=== PATIENT | female | born 1985 | race Caucasian/White ===

== ENCOUNTER 2019-08-17 17:33 | Emergency (ER) | payer SELFPAY ==
[2019-08-17 17:35] VITALS: BP 169/116; PULSE 99; RESP 18; TEMP 37.2; O2SAT 99; BMI 45.0
[2019-08-17 18:33] VITALS: RESP 16
--- NOTE | 2019-08-17 18:37 | ED.DCSUM_ITS ---
- ER Visit Summary Date of Service: 08/17/19 Chief Complaint: Back pain History of Present Illness: The patient is a 34 F with no primary care physician. She reports that she moved here from [place] last week. She reports her sat low back pain for the past month. Is a sharp, burning pain that is 10 on 10 with movement or walking. Is 5-10 at rest after ibuprofen. Denies any radiation to her legs. No problems with her bowels or bladder. No groin numbness. Patient denies any trauma. No fall, MVA, or change in activity. She denies any IV drug abuse. She has no red flags. Physical Examination: Vitals: Stable. Afebrile. General: A&O x 3. NAD. Cardiovascular exam: Regular rate and rhythm, no murmur, rub or gallop. Respiratory exam: Clear to auscultation bilaterally. No wheezes or stridor. Abdominal exam: Soft, nontender, nondistended, normal bowel sounds. No perit burch signs. Back: Diffuse moderate tenderness to palpation over the lumbar spine and the paraspinous musculature in the lumbar region. No point tenderness. Negative straight leg bilaterally. 5/5 DF, PF, EHL bilaterally. Normal sensation to light touch throughout. Extremity: No clubbing, cyanosis, or edema. Emergency Department Course and Treatment: OARS report is negative. Unfortunately this does not cover [place]. She was given Tylenol here. Treatment Plan: Patient has 1 kidney. I do not think that putting her on NSAIDs is in her best interest. She will be discharged prescription for 10 Percocet and instructed to follow-up Dr. Foster in 1 week if not improving. I did discuss with her symptomatic management with a TENS unit and warm compresses. I suggested that physical therapy is a thing that is going to help the most. The signs and symptoms of cauda equina syndrome were discussed and she is instructed to return for these. Disposition: To home in improved and stable condition. Impression: 1. Low back pain. This note was generated with [employer] dictation software. It may contain incorrect words, spelling, and punctuation that were not noted in review of the chart prior to signing ED Disposition - Plan for ED Patient: Disposition: Home or Assisted Living Instructions: BACK PAIN (Acute or Chronic) Prescriptions: Oxycodone HCl/Acetaminophen [Percocet 5/325] 1 tab PO Q6H PRN PRN 3 Days #12 tab PRN Reason: Pain Prescription Printed Referrals: Jamison Foster DO [NON CLINICAL AFFILIATE] - 1 Week if not improving
[2019-08-17] MEDS: Acetaminophen 325 MG Tablet 1000 MG PO (18:44)
[2019-08-17 18:47] VITALS: RESP 16
--- NOTE | 2019-08-17 18:47 | ED.RN ---
REVIEWED D/C INSTRUCTIONS, FOLLOW UP CARE, PRESCRIPTION, AND S/S THAT WOULD WARRANT A RETURN TO THE ED WITH PT. PT VERBALIZED AN UNDERSTANDING AND DENIES FURTHER QUESTIONS FOR THIS RN. PT SKIN WARM/DRY, RESP EVEN AND UNLABORED, PT A&O X 3, NO DISTRESS NOTED. PT AMBULATED OUT OF ED, GAIT STEADY.
== END 2019-08-17 18:50 | disposition home or self-care (01) ==
LOC: ED 18:50
PROVIDERS: Emergency Provider Emergency Medicine
DX: M54.5 Low back pain (principal); I10 Essential (primary) hypertension; F41.9 Anxiety disorder, unspecified; F32.9 Major depressive disorder, single episode, unspecified; F90.9 Attention-deficit hyperactivity disorder, unspecified type; Z79.899 Other long term (current) drug therapy; Z72.0 Tobacco use
CPT/HCPCS: 99283

== ENCOUNTER 2019-08-21 16:59 | Emergency (ER) | payer SELFPAY ==
[2019-08-21 17:01] VITALS: BP 166/104; PULSE 110; RESP 20; TEMP 36.5; O2SAT 98; BMI 46.5
[2019-08-21 17:59] VITALS: BP 142/85; PULSE 100; RESP 18; O2SAT 99
--- NOTE | 2019-08-21 18:00 | ED.VIS.GEN ---
History of Present Illness Chief Complaint: Back Informant: Patient Onset: - Maximum Severity: Mild - Ears Narrative: Patient mention she is had chronic lumbar back pain for years she used to live in [place] current lives in the [facility], she had exacerbation of the pain of the last few weeks no direct trauma no numbness weakness paresthesias his pain really more to the right side of her back than the left she was seen recently in the emergency department. She was started on Percocet to use as needed and follow-up with outpatient providers if not improved, she thought she was supposed to wait 1 week before she called for the appointment She indicates she has 1 kidney from her kidney function is normal, her chief issue is Percocet makes her drowsy at work and she cannot use it at work and she wants something else Tylenol is ineffective She is able to take nonsteroidals intermittently Past Medical History - Allergies and Home Meds Allergies/Adverse Reactions: Allergies adhesive Adverse Reaction (Verified 08/17/19 17:34) Rash latex Adverse Reaction (Verified 08/17/19 17:34) Rash Primary Care Physician: Care Physician,No Primary [Primary Care Provider] - Past Medical History: - Smoking Status: Current some day smoker Review of Systems ROS: - Lumbar back pain General: Denies: Chills, Fever, Sweats Eyes: Denies: Visual changes - bilaterally, Diplopia ENT: Denies: Rhinorrhea, Sore throat Cardiovascular: Denies: Chest pain, Palpitations Respiratory: Denies: Dyspnea, Cough, Dyspnea on exertion Gastrointestinal: Denies: Abdominal pain, Nausea, Vomiting, Diarrhea, Melena, Hematochezia Genitourinary: Denies: Dysuria, Hematuria, Frequency Musculoskeletal: Reports: Back pain. Denies: Extremity Pain Skin: Denies: Rash, Wounds Neurological: Denies: Headache, Weakness, Numbness Physical Exam Vital Signs/Narrative: Vital Signs Temp Pulse Resp BP Pulse Ox 08/21/19 17:01 97.7 F L 110 H 20 H 166/104 H 98 General: Well nourished, Well developed, No Acute Distress Head: Normocephalic, Atraumatic Eyes: Perrl, EOMI ENT: Moist mucous membranes, No rhinorrhea Neck: Supple, Nontender Cardiovascular: Regular rate, Regular rhythm, No murmurs Respiratory: No distress, CTA bilaterally, Chest nontender Abdomen: Soft, Nontender, Nondistended, Normal bowel sounds Back: Nontender, Normal Inspection, - - Is a nonspecific pain to the right more than the left paralumbar back the midline back is unremarkable she is a very large woman she is able to stand and walk without difficulty she can toe raise heel raise knee bend and walk without difficulty no signs of cauda equina her neurologic exam is unremarkable there is no radiation Extremities: Nontender, No edema Skin: Normal color, No rash Neurological: Alert, Oriented x3, Cranial nerves II-XII grossly intact, Normal Strength, Normal Sensation Psychological: Normal affect, Normal Mood Diagnostic/Tx/Re-eval - Medical Decision Making Discussed all the above with her in detail the issue is that she feels as if she cannot use the Percocet at work as it makes her drowsy she has a single isolated solitary kidney at she is able to use nonsteroidals, at this time she will be given a shot of Toradol x1 she will use Naprosyn 500 mg during the day try to use the Percocet very sparingly and she will call the outpatient provider she was referred to an see them for further ongoing management of his condition Home stable Impression final acute recurrent lumbar back pain, 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
[2019-08-21] MEDS: Ketorolac 60 MG/2 ML Vial IM (18:11)
== END 2019-08-21 18:40 | disposition home or self-care (01) ==
LOC: ED 18:05
PROVIDERS: Emergency Provider Emergency Medicine
DX: M54.5 Low back pain (principal); G89.29 Other chronic pain; Q60.0 Renal agenesis, unilateral; Z79.899 Other long term (current) drug therapy; F17.200 Nicotine dependence, unspecified, uncomplicated
CPT/HCPCS: 96372; 99283

== ENCOUNTER 2022-06-12 01:08 | Emergency (ER) | payer OTHER, SELFPAY ==
[2022-06-12 01:14] VITALS: BP 131/84; PULSE 66; RESP 16; TEMP 36.6; O2SAT 100; BMI 35.1
--- NOTE | 2022-06-12 01:18 | RAD_ITS ---
STUDY: X-RAY - LEFT FOOT CLINICAL: Female, 37 years old. pain TECHNIQUE: 3 view(s) of the foot. COMPARISON: None. FINDINGS: There is a plantar calcaneal spur. Normal visualized subtalar, talonavicular, calcaneocuboid, tarsal and tarsometatarsal articulations. Normal metatarsi. Normal metatarsophalangeal joint of the great toe. Normal tibial and fibular sesamoid bones. Normal interphalangeal joint of the great toe. Normal phalanges of the great toe. Normal second through fifth metatarsophalangeal joints. Normal interphalangeal joints and phalanges of the lesser toes. The soft tissue structures are unremarkable. RAD/Foot min 3 Views IMPRESSION: Normal x-ray examination of the foot. Electronically Signed: Cristy Adame MD at 2:06 EST ,
--- NOTE | 2022-06-12 01:47 | EDS_ITS ---
HPI History of Present Illness HPI Narrative: Patient presents with left foot pain that began today. Patient states she got out of bed and stepped on her left foot. Patient states she felt a pop at that time. Patient states the pain is worse with any movement. Patient states it is better with rest. Patient describes her pain as sharp. Patient denies any paresthesias or weakness. Patient denies any other injuries. Patient states her pain is mainly over the dorsum of her left midfoot. Chief Complaint: Lower Extremity Injury Informant: patient Occured/Mechanism Comment: Patient felt a pop while standing on her foot Onset/Context/Timing Onset: Today Context: Sudden Onset Timing: Continuous Quality of Pain: Sharp Location: Left foot Worsened by: Movement Relieved by: Rest Associated Symptoms Associated Symptoms: Negative for Parasthesia, Weakness or Loss of Funtion [facility] Medical History Anxiety Depression Kidney anomaly, congenital Tachycardia Home Medications metoprolol tartrate 25 mg tablet 25 mg PO BID 06/12/22 [History Last Taken Unknown] venlafaxine 37.5 mg tablet 37.5 mg PO TID 06/12/22 [History Last Taken Unknown] Allergy/AdvReac Type Severity Reaction Status Date / Time bupropion [From Wellbutrin] Allergy Other Verified 06/12/22 01:12 adhesive AdvReac Rash Verified 06/12/22 01:12 latex AdvReac Rash Verified 06/12/22 01:12 Surgical History Gastric bypass status for obesity History of tonsillectomy and adenoidectomy Social History Smoking Status: Never smoker ROS ROS ED Constitutional Constitutional ED: Denies chills or fever(s) Eyes Eyes: Denies blurry vision or change in vision ENT ENT ED: Denies rhinorrhea or sore throat Cardiovascular Cardiovascular: Denies chest pain or palpitations Respiratory/Chest Respiratory/Chest: Denies cough or dyspnea Gastrointestinal Gastrointestinal: Denies nausea or vomiting Genitourinary Genitourinary ED: Denies dysuria or hematuria Musculoskeletal Musculoskeletal: Denies back pain or neck pain Integumentary Denies abscess or rash Neurologic Neurologic: Denies headache(s) or weakness Allergic/Immunologic Allergic/Immunologic ED: Denies mouth swelling or urticaria EXAM Physical Exam Const Vital Signs: 06/12/22 01:14 Temperature 97.9 F Temperature Source Temporal Pulse Rate 66 Respiratory Rate 16 Blood Pressure 131/84 H Blood Pressure Mean 99 Pulse Ox 100 Oxygen Delivery Method Room Air Positive well nourished, well developed and obese General Appearance ED: well developed and NAD Nutritional Appearance: obese HEENT Reports moist mucous membranes Neck full ROM and supple Extremity Extremity Narrative: There is tenderness over the dorsum of the left midfoot. There is some mild edema. There is no ecchymosis. There is no deformity noted. Range of motion was limited in all motions of the left foot and ankle secondary to pain. Sensation was intact to light touch in all digits. Capillary refill was less than 2 seconds in all digits. Pedal pulses are equal bilaterally. There is no calf tenderness. There is no tenderness over the proximal fibula. There is no tenderness of the medial or lateral malleoli. Neuro oriented x3, CN's II-XII intact bilaterally, moves all extremities and no sensory deficits noted Sensorium / Orientation: alert Motor Exam: strength 5/5 throughout Psych mental status grossly normal MDM MDM MDM Narrative Medical decision making narrative: X-rays of the left foot were obtained. There are 3 views. On my in terpretation, there is no acute fracture. There is no dislocation. There is no soft tissue swelling. Radiologist also interpreted the x-rays and agrees. Patient was given a postoperative shoe. Patient was instructed to ice and elevate the left foot. Patient was instructed to take Tylenol or ibuprofen as needed for pain. Patient was instructed return if worse in any way. Patient was instructed to follow-up with her primary care physician in 5 to 7 days. Patient understood and was agreeable with the plan. All questions were answered. Radiography Diagnostic Testing: Clinical Impression(s) from Imaging Studies Foot X-Ray 06/12/22 01:18 IMPRESSION: Normal x-ray examination of the foot. Electronically Signed: Cristy Adame MD at 2:06 EST , Discharge Plan Triage Chief Complaint: Lower Extremity Injury ED Provider: Schwiger,Mani Dx/Rx/DC Orders Clinical Impression: Sprain of left foot, Obesity (BMI 30-39.9) Instructions: ED Foot Sprain Prescriptions: No Action venlafaxine 37.5 mg tablet 37.5 mg PO TID Label Comments: TAKE 1 TABLET BY MOUTH THREE TIMES DAILY metoprolol tartrate 25 mg tablet 25 mg PO BID Label Comments: TAKE 1 TABLET BY MOUTH TWICE DAILY Primary Care Provider: Fabián Mora Referrals: Fabián Mora MD [Primary Care Provider] - 5-7 Days Disposition Disposition: Home, Self Care
[2022-06-12 02:35] VITALS: BP 128/72; PULSE 79; RESP 18; O2SAT 100
== END 2022-06-12 02:36 | disposition home or self-care (01) ==
PROVIDERS: Emergency Provider Emergency Medicine; PCP Family Medicine; Visit Provider Emergency Medicine
DX: S93.602A Unspecified sprain of left foot, initial encounter (principal); E66.9 Obesity, unspecified; Z79.899 Other long term (current) drug therapy; X58.XXXA Exposure to other specified factors, initial encounter
CPT/HCPCS: 73630; 99283

== ENCOUNTER 2024-02-12 20:35 | Inpatient (IN) | payer OTHER, SELFPAY ==
[2024-02-12 20:36] VITALS: BP 157/87; PULSE 113; RESP 18; TEMP 36.6; O2SAT 100; BMI 34.8
[2024-02-12 20:38] VITALS: BP 126/70; PULSE 113; RESP 18; TEMP 38.9; O2SAT 100
--- NOTE | 2024-02-12 20:59 | CT_ITS ---
INDICATION: flank pain EXAMINATION: CT ABDOMEN AND PELVIS WITHOUT CONTRAST - CT Abdomen And Pelvis W/O Contrast Injection TECHNIQUE: Helically acquired images were obtained of the abdomen and pelvis without oral or IV contrast. A radiation dose optimization technique was used for this scan. IV Contrast dosage and agent: None. Oral contrast: None. COMPARISON: None. FINDINGS: LOWER CHEST: Lung bases are clear. No cardiomegaly or pericardial effusion. LIVER: Homogeneous hepatomegaly. No focal mass. GALLBLADDER AND BILIARY TREE: Gallbladder is mildly distended with trace adjacent fluid or mild wall thickening. No intra- or extrahepatic biliary ductal dilation. PANCREAS: No focal cystic or solid mass. SPLEEN: Normal size without focal cystic or solid mass. ADRENAL GLANDS: No nodules. KIDNEYS AND URETERS: Absent right kidney. Compensatory left renal enlargement. Mild diffuse left perinephric stranding. No hydronephrosis or nephrolithiasis. Unremarkable ureters and bladder. PERITONEUM: No ascites or free air. No other fluid collection. BOWEL: Antecolic Haim-en-Y gastric bypass without obstruction or focal inflammation. No small bowel distention or focal wall thickening. Cecum and normal appendix are noted at midline. No acute colonic finding. LYMPH NODES: No enlarged mesenteric or retroperitoneal lymph nodes. VESSELS: Aorta is non-dilated. URINARY BLADDER: Mostly decompressed, unremarkable.. REPRODUCTIVE ORGANS: Lobulated fibroid uterus. No evidence of adnexal mass.. ABDOMINAL WALL: No discrete abdominal or pelvic wall hernia. BONES: No lytic or blastic abnormality. CT/Abdomen/Pelvis without Cont IMPRESSION: Solitary left kidney with mild perinephric inflammatory stranding.. Correlate for clinical evidence of pyelonephritis. Mildly distended gallbladder with minimal pericholecystic fluid or wall thickening. Consider gallbladder ultrasound. Hepatomegaly. Electronically Signed: Obie Em MD at 22:22 EDT ,
--- NOTE | 2024-02-12 21:01 | EDS_ITS ---
HPI <TALHA Nascimento - Last Filed: 02/12/24 22:58> History of Present Illness Chief Complaint: Complaint Narrative Narrative: Patient is a 38-year-old female with history of being born with 1 kidney, tachycardia, anxiety, depression, ADHD who presents to the emergency department for fever, left-sided flank pain. Patient states 1 week ago, the patient started with some lower back pain, however did not think much of it. Over the weekend, the patient states she just slept a lot. She went to the urgent care Friday which was 3 days ago, diagnosed with a UTI, given Bactrim. Patient states she is now having significant pain to her left flank that radiates to the left abdomen. She states the fever, chills, and feels nauseated. She states she also has blood when she wipes. PFS <TALHA Nascimento - Last Filed: 02/12/24 22:58> [facility] Medical History (Updated 02/12/24 @ 23:[address] Shaheed Tinoco MD) Insomnia MDD (major depressive disorder), single episode ADHD Generalized anxiety disorder with panic attacks Anxiety Depression Kidney anomaly, congenital Tachycardia Home Medications ?Medication ?Instructions ?Recorded ?Last Taken ?Type metoprolol tartrate 25 mg tablet 25 mg PO BID 06/12/22 Unknown History aripiprazole 2 mg tablet 2 mg PO DAILY #30 tabs 01/05/24 Unknown Rx dextroamphetamine-amphetamine 10 10 mg PO BID 30 days #60 tabs 01/14/24 Unknown Rx mg tablet (Adderall) venlafaxine 50 mg tablet 50 mg PO TID #90 tabs 02/10/24 Unknown Rx clonazepam 1 mg tablet (Klonopin) 1 mg PO DAILY PRN anxiety 02/12/24 Unknown History doxepin 10 mg capsule 10 mg PO QHS PRN insomnia 02/12/24 Unknown History etonogestrel 68 mg subdermal 1 implant subdermal .COMPLEX 02/12/24 Unknown History implant (Nexplanon) Allergy/AdvReac Type Severity Reaction Status Date / Time bupropion (From Wellbutrin) Allergy Other Verified 02/12/24 21:37 atomoxetine (From Strattera) AdvReac Mild Itching Verified 02/12/24 21:37 adhesive AdvReac Rash Verified 02/12/24 21:37 latex AdvReac Rash Verified 02/12/24 21:37 Family History Other Anxiety Asthma Cancer Depression Hypertension Psychiatric care Suicide attempt Surgical History History of tonsillectomy and adenoidectomy Gastric bypass status for obesity Social History Smoking Status: Never smoker ROS <TALHA Nascimento - Last Filed: 02/12/24 22:58> ROS ED ROS Narrative Constitutional: Negative for weight loss, weakness. Positive for fever and chills Eyes: Negative for vision loss, vision change, double vision ENT: Negative for any sore throat, ear pain, congestion Cardiovascular: Negative for any chest pain, tightness, palpitations Respiratory: Negative for any cough, sputum production, hemoptysis, dyspnea, dyspnea on exertion, orthopnea Gastrointestinal: Negative for any vomiting, diarrhea, constipation, blood in stool, blood in vomit. Positive for left flank pain, rating to the left abdomen : Negative for any retention. Positive for urinary frequency, pain with urination, blood in urine Muscle skeletal: Negative for any neck pain. Positive for left-sided flank pain Neurological: Negative for any headache, syncope, dizziness Skin: Negative for any rashes, itching, abrasions, lacerations Psychiatric: Negative for any depression, anxiety, stress, suicidal ideation, homicidal ideation Hematologic: Negative for any excessive bruising, easy bleeding EXAM <TALHA Nascimento - Last Filed: 02/12/24 22:58> Physical Exam Narrative Exam Narrative: Vital signs reviewed. Patient is febrile, tachycardic, looks uncomfortable. HEET: Head normocephalic atraumatic, TMs clear bilaterally. Posterior pharynx is clear, dry mucous membranes. Nares clear bilaterally. Neck: Supple with no lymphadenopathy or tenderness. No signs of meningismus. Cardiac: Tachycardic, no murmurs gallops or rubs, equal peripheral pulses bilaterally. Respiratory: Lungs clear to auscultation bilaterally. No chest tenderness. Abdomen: Soft, nontender, nondistended. No abdominal bruit or pulsatile masses. No hepatosplenomegaly Extremities: No peripheral edema, no signs of gross trauma or deformity. Active full range of motion of all extremities. Neuro: Cranial nerves II through XII intact, no focal neurological deficits. Skin: Clean dry and intact with no rash, purpura, petechiae, vesicles or pustules. Backs/flank: Positive for left-sided CVA tenderness, no midline spinal tenderness, no deformity. Psych: Normal mood and affect. No SI, HI or acute psychosis. Const Vital Signs: 02/12/24 20:36 02/12/24 20:38 02/12/24 21:08 Temperature 98 F 102.1 F H Temperature Source Temporal Oral Pulse Rate 113 H 113 H Respiratory Rate 18 18 Blood Pressure 157/87 H 126/70 H Blood Pressure Mean 110 88 Pulse Ox 100 100 99 Oxygen Delivery Method Room Air Room Air Room Air 02/12/24 22:35 02/12/24 23:19 Temperature 98.4 F Temperature Source Pulse Rate 93 96 Respiratory Rate 16 16 Blood Pressure 109/60 108/69 Blood Pressure Mean 76 82 Pulse Ox 98 98 Oxygen Delivery Method Room Air Positive well nourished and well developed General Appearance ED: well developed <Dr. Shaheed Tinoco MD - Last Filed: 02/12/24 23:49> Physical Exam Const Vital Signs: 02/12/24 20:36 02/12/24 20:38 02/12/24 21:08 Temperature 98 F 102.1 F H Temperature Source Temporal Oral Pulse Rate 113 H 113 H Respiratory Rate 18 18 Blood Pressure 157/87 H 126/70 H Blood Pressure Mean 110 88 Pulse Ox 100 100 99 Oxygen Delivery Method Room Air Room Air Room Air 02/12/24 22:35 02/12/24 23:19 Temperature 98.4 F Temperature Source Pulse Rate 93 96 Respiratory Rate 16 16 Blood Pressure 109/60 108/69 Blood Pressure Mean 76 82 Pulse Ox 98 98 Oxygen Delivery Method Room Air MDM <TALHA Nascimento - Last Filed: 02/12/24 22:58> MDM Lab Data Labs: Laboratory Results - last 24 hr 02/12/24 21:20 WBC 13.2 H RBC 3.88 L Hgb 12.5 Hct 36.6 L MCV 94.3 MCH 32.2 H MCHC 34.2 RDW Std Deviation 41.0 RDW Coeff of Krys 11.9 Plt Count 285 MPV 9.2 Immature Gran % (Auto) 2.800 H Neut % (Auto) 85.2 H Lymph % (Auto) 4.5 L Holt % (Auto) 6.3 Eos % (Auto) 0.5 Baso % (Auto) 0.7 Absolute Neuts (auto) 11.2 H Absolute Lymphs (auto) 0.59 L Nucleated RBC % 0 Differential Comment SEE COMMENT Platelet Estimate ADEQUATE RBC Morphology N CHROM Anisocytosis RARE Macrocytosis RARE PT 15.2 H INR 1.2 APTT 31.1 Sodium 133 L Potassium 3.5 Chloride 104 Carbon Dioxide 21.0 Anion Gap 8 BUN 31 H Creatinine 1.92 H Estim Creat Clear Calc 49.73 Est GFR (MDRD) Af Amer 37 L Est GFR (MDRD) Non-Af 31 L BUN/Creatinine Ratio 16.1 Glucose 109 H Lactic Acid 1.2 Calcium 8.8 Total Bilirubin 0.40 AST 16 ALT 45 Alkaline Phosphatase 190 H Total Protein 7.6 Albumin 2.5 L Globulin 5.1 H Albumin/Globulin Ratio 0.5 L Urine Color Yellow Urine Clarity Cloudy Urine pH 6.0 Ur Specific [place] 1.015 Urine Protein 100 H Urine Glucose (UA) Normal Urine Ketones Negative Urine Occult Blood 250 H Urine Nitrite Negative Urine Bilirubin 1 H Urine Urobilinogen 8 H Ur Leukocyte Esterase 500 H Urine RBC 0-5 SEEN Urine WBC 10-25 SEEN Ur Squamous Epith Cells 0-5 SEEN Urine Bacteria 2+ Urine Mucus 0 SEEN Radiography Diagnostic Testing: Clinical Impression(s) from Imaging Studies Abdomen/Pelvis CT 02/12/24 20:59 IMPRESSION: Solitary left kidney with mild perinephric inflammatory stranding.. Correlate for clinical evidence of pyelonephritis. Mildly distended gallbladder with minimal pericholecystic fluid or wall thickening. Consider gallbladder ultrasound. Hepatomegaly. Electronically Signed: Obie Em MD at 22:22 EDT , Treatment and Re-Evaluation :: Differential diagnosis includes however is not limited to: Obstructing uropathy, obstructed infected kidney stone, pyelonephritis, complex UTI, diverticulitis Patient appears to feel unwell, however patient is alert and oriented, acting appropriate, vital signs are stable. Patient will receive a full septic workup, patient is tachycardic with a rate of 113, temperature of 102.1 significant left-sided flank pain. Patient will receive blood cultures x 2, lactic, urine, urine culture, IV antibiotics, IV fluids will be ordered. Patient received [address] scan of the abdomen pelvis without contrast will be ordered, looking for any obstructing uropathy, straining, pyelonephritis. Patient will be reevaluated. 1 g of Tylenol given for the fever. All radiologic examinations were read, reviewed by the emergency department attending. From these reads, a plan of care will be put in place. Patient CT scan of the abdomen pelvis shows a solitary left kidney with mild perinephric inflammation stranding mildly distended gallbladder with minimal pericystic fluid wall. Consider gallbladder ultrasound. Patient has no pain to right upper quadrant. All the pain is to the left flank, left abdomen. At this time, secondary to the solitary kidney, patient be diagnosed with pyelonephritis. Patient be admitted to the hospital. <Dr. Shaheed Tinoco MD - Last Filed: 02/12/24 23:49> [facility] Narrative Medical decision making narrative: I have personally performed a face to face assessment of the patient and have reviewed the DAVI Note. I performed a substantive portion of the visit including all aspects of the following. My vega findings include: History is fevers that started almost 1 week ago with fatigue, followed by foul- smelling discolored/cloudy urine, frequency, and left flank pain. Vomited today. Was diagnosed with a UTI and started on Bactrim, today's day #3 and she feels she is still getting worse and continuing to have fevers for the last 5 or 6 days. 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 Exam is well-appearing, there is left CVA tenderness, benign abdomen, tachycardic. Medical Decison Making suspect pyelonephritis, failing outpatient therapy. She has a leukocytosis, urine is positive for infection, plan is for admission and IV antibiotics. Patient does have renal sufficiency but there are no old labs to compare with. IV antibiotics started plan is for admission. I reviewed the CT images and the report which I agree with. Consistent with pyelonephritis, no obstructive uropathy. Other additions or changes: [None] Lab Data Labs: Laboratory Results - last 24 hr 02/12/24 21:20 WBC 13.2 H RBC 3.88 L Hgb 12.5 Hct 36.6 L MCV 94.3 MCH 32.2 H MCHC 34.2 RDW Std Deviation 41.0 RDW Coeff of Krys 11.9 Plt Count 285 MPV 9.2 Immature Gran % (Auto) 2.800 H Neut % (Auto) 85.2 H Lymph % (Auto) 4.5 L Holt % (Auto) 6.3 Eos % (Auto) 0.5 Baso % (Auto) 0.7 Absolute Neuts (auto) 11.2 H Absolute Lymphs (auto) 0.59 L Nucleated RBC % 0 Differential Comment SEE COMMENT Platelet Estimate ADEQUATE RBC Morphology N CHROM Anisocytosis RARE Macrocytosis RARE PT 15.2 H INR 1.2 APTT 31.1 Sodium 133 L Potassium 3.5 Chloride 104 Carbon Dioxide 21.0 Anion Gap 8 BUN 31 H Creatinine 1.92 H Estim Creat Clear Calc 49.73 Est GFR (MDRD) Af Amer 37 L Est GFR (MDRD) Non-Af 31 L BUN/Creatinine Ratio 16.1 Glucose 109 H Lactic Acid 1.2 Calcium 8.8 Total Bilirubin 0.40 AST 16 ALT 45 Alkaline Phosphatase 190 H Total Protein 7.6 Albumin 2.5 L Globulin 5.1 H Albumin/Globulin Ratio 0.5 L Urine Color Yellow Urine Clarity Cloudy Urine pH 6.0 Ur Specific [place] 1.015 Urine Protein 100 H Urine Glucose (UA) Normal Urine Ketones Negative Urine Occult Blood 250 H Urine Nitrite Negative Urine Bilirubin 1 H Urine Urobilinogen 8 H Ur Leukocyte Esterase 500 H Urine RBC 0-5 SEEN Urine WBC 10-25 SEEN Ur Squamous Epith Cells 0-5 SEEN Urine Bacteria 2+ Urine Mucus 0 SEEN Radiography Diagnostic Testing: Clinical Impression(s) from Imaging Studies Abdomen/Pelvis CT 02/12/24 20:59 IMPRESSION: Solitary left kidney with mild perinephric inflammatory stranding.. Correlate for clinical evidence of pyelonephritis. Mildly distended gallbladder with minimal pericholecystic fluid or wall thickening. Consider gallbladder ultrasound. Hepatomegaly. Electronically Signed: Obie Em MD at 22:22 EDT , I reviewed the CT images in the report which I agree with, consistent with pyelonephritis without obstructive uropathy Management Discussion w/another healthcare provider: Hospitalist Discharge Plan Dx/Rx/DC Orders Clinical Impression: Pyelonephritis, Congenital solitary kidney, Failure of outpatient treatment, Renal insufficiency Disposition Disposition: [facility]
[2024-02-12 21:08] VITALS: O2SAT 99
[2024-02-12] MEDS: Acetaminophen 500 MG Tablet 1000 MG PO (21:13)
[2024-02-12] MEDS: Morphine 4 MG/ML Syringe IV (21:27)
[2024-02-12] MEDS: Ondansetron 4 MG/2 ML Vial IV (21:27)
[2024-02-12] MEDS: 0.9% Normal Saline (1000mL) 1,000 ML 999 ML IV ×2 (21:28→22:08)
[2024-02-12 21:32] LABS: Mucous, Urine 0 SEEN /hpf (<or=2+)
[2024-02-12] MEDS: Ceftriaxone 1 GM/50 ML BAG IV (21:33)
[2024-02-12 21:37] LABS: Absolute Lymphocyte Count 0.59 X10^3/uL (0.83-4.51); Absolute Neutrophil Count 11.2 X10^3/uL (2.0-7.7); Basophil# 0.09 X10^3/uL; Basophil% 0.7 % (0-1); Eosinophil# 0.07 X10^3/uL; Eosinophils% 0.5 % (0-5); Hematocrit 36.6 % (37-47); Hemoglobin 12.5 g/dL (12.0-15.0); Lymphocyte # 0.59 X10^3/ul (0.83-4.51); Lymphocyte % 4.5 % (19-41); Mean Corp Hgb Conc 34.2 g/dL (32-36); Mean Corpuscular Hgb 32.2 pg (27.0-32.0); Mean Corpuscular Volume 94.3 fL (81-99); Mean Platelet Vol. 9.2 fl (6.2-12.0); Monocyte# 0.83 X10^3/uL; Monocyte% 6.3 % (0-10); NRBC Flagged by Analyzer 0 % (0-5); Neutrophil # 11.23 X10^3/uL (2.7-7.7); Neutrophil % 85.2 % (47-70); POSITIVE DIFFERENTIAL YES; Platelet Count 285 K/mm3 (150-450); RBC Distribution Width CV 11.9 % (11.6-14.6); Red Blood Count 3.88 M/mm3 (4.2-5.4); White Blood Count 13.2 K/mm3 (4.4-11.0)
[2024-02-12 21:43] LABS: Differential Indicated SCAN CRITERIA MET
[2024-02-12 21:46] LABS: International Normalized Ratio 1.2; Prothrombin Time (Protime)PT. 15.2 SECONDS (11.7-14.9)
[2024-02-12 21:47] LABS: Partial Thromboplast Time 31.1 Seconds (24.1-36.2)
[2024-02-12 21:48] LABS: Color, Urine Yellow (Yellow); Glucose, Dipstick Normal (Normal); Ketone-Dipstick Negative (Negative); Leukocyte Esterase-Dipstick 500 /ul (Negative); Nitrite-Dipstick Negative (Negative); Occult Blood-Urine 250 /ul (Negative); Protein-Dipstick 100 mg/dl (Negative); Specific Gravity, Urine 1.015 (1.002-1.030); Urine Bilirubin Dipstick 1 mg/dL (Negative); Urine Clarity Cloudy (Clear); Urine Urobilinogen 8 mg/dl (Normal)
[2024-02-12 21:55] LABS: Bacteria 2+ /hpf (None Seen); Red Blood Cells-Urine 0-5 SEEN /hpf (0-5); Squamous Epithelial Cells - UA 0-5 SEEN /hpf (5-10); White Blood Cells 10-25 SEEN /hpf (0-5)
[2024-02-12 22:00] LABS: Lactic Acid 1.2 mmol/L (0.4-1.9)
[2024-02-12 22:01] LABS: ALB/GLOB Ratio 0.5 RATIO (0.9-2.4); AST(SGOT) 16 U/L (15-37); Alanine Aminotransfer ALT/SGPT 45 U/L (13-56); Albumin, Serum 2.5 g/dL (3.2-5.0); Alkaline Phosphatase 190 U/L (45-117); Anion Gap 8 (5-15); BUN 31 mg/dL (7-18); BUN/Creat Ratio 16.1 RATIO (10-20); Calcium,Total 8.8 mg/dL (8.5-10.1); Chloride 104 mmol/L (98-107); Creatinine, Serum 1.92 mg/dL (0.55-1.02); EST Glomerular Filtration Rate 31 mL/min (>60); Est Glom Filt Rate - Afr Amer 37 mL/min (>60); Estimated Creatinine Clearance 49.73 ml/min; Globulin 5.1 g/dL (2.2-4.2); Glucose 109 mg/dL (74-106); Potassium 3.5 mmol/L (3.5-5.1); Protein, Total 7.6 g/dL (6.4-8.2); Sodium Level 133 mmol/L (136-145)
[2024-02-12 22:02] LABS: Anisocytosis RARE; Macrocytosis RARE; Platelet Estimate ADEQUATE (ADEQ); Red Cell Morphology N CHROM NORMAL (NORM C&C)
[2024-02-12 22:35] VITALS: BP 109/60; PULSE 93; RESP 16; O2SAT 98
[2024-02-12 23:19] VITALS: BP 108/69; PULSE 96; RESP 16; TEMP 36.9; O2SAT 98
--- NOTE | 2024-02-12 23:40 | HP.PCM.HOS_ITS ---
HPI - General General Date of Admission: 02/12/24 Date of Service: 02/12/24 Chief Complaint: Worsening left-sided flank pain HPI Narrative JCARLOS HEATH, is a 38 F who presented to [facility] ED on 02/12/2024 with worsening left-sided flank pain. Saw patient at bedside in the ED. Patient was sitting up comfortably in bed, conversing normally, no acute distress. Patient had been given IV pain medication before I saw her and stated this was very helpful for her pain. Patient has history of congenital solitary left kidney. She has had a few mild UTIs in the past but is never had pyelonephritis. About 1 week ago, she developed foul-smelling and cloudy urine with increased urinary frequency and left-sided flank pain. She went to urgent care Friday and was diagnosed with UTI and was started on Bactrim. She has taken 3 days of Bactrim and symptoms have only gotten worse. She has developed fevers and chills with nausea and has had minimal p.o. intake over the past few days. She has also had worsening left flank pain. On arrival to the ED, vitals were notable for temp 102.1F and sinus tachycardia to 110s. Blood pressure was in normal range. Labs notable for WBC count 13.2, sodium 133, potassium 3.5, bicarb 21, BUN 31, creatinine 1.92 (baseline unknown), alk phos 190, albumin 2.5. UA showed 100 protein, 250 occult blood, 500 leukocyte esterase, negative nitrites, 2+ bacteria. CT abdomen pelvis showed a solitary left kidney with mild perinephric inflammatory stranding; also showed a mildly distended gallbladder with minimal pericholecystic fluid or wall thickening and hepatomegaly. Patient was given 2 L normal saline and doses of both IV morphine and IV Zofran with significant improvement in symptoms. On my encounter, patient was no longer tachycardic and stated that her flank pain was much improved. She was feeling hungry and asking for snacks. No other acute concerns at this time. [facility] Medical History (Updated 02/13/24 @ 02:[address] Homer Tavares, DO) Insomnia MDD (major depressive disorder), single episode ADHD Generalized anxiety disorder with panic attacks Anxiety Depression Kidney anomaly, congenital Tachycardia Home Medications ?Medication ?Instructions ?Recorded ?Last Taken ?Type metoprolol tartrate 25 mg tablet 25 mg PO BID tachycardia 06/12/22 02/12/24 History aripiprazole 2 mg tablet 2 mg PO DAILY #30 tabs 01/05/24 02/12/24 Rx dextroamphetamine-amphetamine 10 10 mg PO BID 30 days #60 tabs 01/14/24 02/12/24 Rx mg tablet (Adderall) venlafaxine 50 mg tablet 50 mg PO TID #90 tabs 02/10/24 02/12/24 Rx clonazepam 1 mg tablet (Klonopin) 1 mg PO DAILY PRN anxiety 02/12/24 02/09/24 History doxepin 10 mg capsule 10 mg PO QHS PRN insomnia 02/12/24 02/05/24 History etonogestrel 68 mg subdermal 1 implant subdermal .COMPLEX 02/12/24 Unknown History implant (Nexplanon) Allergy/AdvReac Type Severity Reaction Status Date / Time bupropion (From Wellbutrin) Allergy Other Verified 02/12/24 21:37 atomoxetine (From Strattera) AdvReac Mild Itching Verified 02/12/24 21:37 adhesive AdvReac Rash Verified 02/12/24 21:37 latex AdvReac Rash Verified 02/12/24 21:37 Family History Other Anxiety Asthma Cancer Depression Hypertension Psychiatric care Suicide attempt Surgical History History of tonsillectomy and adenoidectomy Gastric bypass status for obesity Social History Smoking Status: Former smoker ROS Constitutional Constitutional: Reports chills, fatigue, fever(s) and malaise Eyes Eyes: Denies change in vision Cardiovascular Cardiovascular: Denies chest pain Respiratory/Chest Respiratory/Chest: Denies shortness of breath at rest Gastrointestinal Gastrointestinal: Reports nausea; Denies abdominal pain, constipation, diarrhea or vomiting Genitourinary Genitourinary: Reports burning urination, dysuria, urinary frequency and other Details: Left-sided flank pain Neurologic Neurologic: Denies dizziness, focal weakness or headache(s) Vital Signs Vital Signs Vital Signs: 02/12/24 20:36 02/12/24 20:38 02/12/24 21:08 Temperature 98 F 102.1 F H Temperature Source Temporal Oral Pulse Rate 113 H 113 H Respiratory Rate 18 18 Blood Pressure 157/87 H 126/70 H Blood Pressure Mean 110 88 Pulse Ox 100 100 99 Oxygen Delivery Method Room Air Room Air Room Air 02/12/24 22:35 02/12/24 23:19 Temperature 98.4 F Temperature Source Pulse Rate 93 96 Respiratory Rate 16 16 Blood Pressure 109/60 108/69 Blood Pressure Mean 76 82 Pulse Ox 98 98 Oxygen Delivery Method Room Air Weight Weight: 104.326 kg Body Mass Index (BMI) 34.8 Physical Exam Const alert, oriented x3 and no apparent distress Constitutional Narrative: Pleasant younger female, obese, sitting up comfortably in bed, conversing normally, in no acute distress. General Appearance: cooperative and comfortable HEENT normocephalic, head/scalp atraumatic, hearing grossly normal bilaterally, nasal mucous membranes and turbinates normal and moist oral mucous membranes Eyes PERRL, EOMs intact bilaterally and conjunctivae normal Neck full ROM Chest inspection of chest normal Resp normal respiratory effort, normal air movement, no use of accessory muscles and clear to auscultation bilaterally Cardio regular rate, regular rhythm, no murmurs and peripheral pulses 2+ throughout GI normal to inspection, nondistended, normoactive bowel sounds, soft to palpation, non-tender and non-distended Narrative: Mild left-sided CVA tenderness noted. Bladder / Kidney Exam: bladder normal to palpation Back/Spine normal ROM Extremity normal to inspection, full ROM and no pedal edema Skin no rashes or lesions noted Neuro moves all extremities and no focal motor deficits Speech: speech normal Psych mental status grossly normal Results Lab / Micro Data 02/12/24 21:20 02/12/24 21:20 Labs: Laboratory Results - last 24 hr 02/12/24 21:20: WBC 13.2 H, RBC 3.88 L, Hgb 12.5, Hct 36.6 L, MCV 94.3, MCH 32.2 H, MCHC 34.2, RDW Std Deviation 41.0, RDW Coeff of Krys 11.9, Plt Count 285, MPV 9.2, Immature Gran % (Auto) 2.800 H, Neut % (Auto) 85.2 H, Lymph % (Auto) 4.5 L, [place] % (Auto) 6.3, Eos % (Auto) 0.5, Baso % (Auto) 0.7, Absolute Neuts (auto) 11.2 H, Absolute Lymphs (auto) 0.59 L, Nucleated RBC % 0, Differential Comment SEE COMMENT, Platelet Estimate ADEQUATE, RBC Morphology N CHROM, Anisocytosis RARE, Macrocytosis RARE, PT 15.2 H, INR 1.2, APTT 31.1, Sodium 133 L, Potassium 3.5, Chloride 104, Carbon Dioxide 21.0, Anion Gap 8, BUN 31 H, Creatinine 1.92 H , Estim Creat Clear Calc 49.73, Est GFR (MDRD) Af Amer 37 L, Est GFR (MDRD) Non- Af 31 L, BUN/Creatinine Ratio 16.1, Glucose 109 H, Lactic Acid 1.2, Calcium 8.8, Total Bilirubin 0.40, AST 16, ALT 45, Alkaline Phosphatase 190 H, Total Protein 7.6, Albumin 2.5 L, Globulin 5.1 H, Albumin/Globulin Ratio 0.5 L, Urine Color Yellow, Urine Clarity Cloudy, Urine pH 6.0, Ur Specific [place] 1.015, Urine Protein 100 H, Urine Glucose (UA) Normal, Urine Ketones Negative, Urine Occult Blood 250 H, Urine Nitrite Negative, Urine Bilirubin 1 H, Urine Urobilinogen 8 H , Ur Leukocyte Esterase 500 H, Urine RBC 0-5 SEEN, Urine WBC 10-25 SEEN, Ur Squamous Epith Cells 0-5 SEEN, Urine Bacteria 2+, Urine Mucus 0 SEEN Imaging Radiology Impression Abdomen/Pelvis CT 02/12/24 20:59 IMPRESSION: Solitary left kidney with mild perinephric inflammatory stranding.. Correlate for clinical evidence of pyelonephritis. Mildly distended gallbladder with minimal pericholecystic fluid or wall thickening. Consider gallbladder ultrasound. Hepatomegaly. Electronically Signed: Obie Em MD at 22:22 EDT , Assessment & Plan Assessment/Plan (1) Sepsis: (2) Pyelonephritis: (3) Congenital solitary kidney: (4) Failure of outpatient treatment: (5) Renal insufficiency: PLAN: Plan Patient is a 38-year-old female who presented to [facility] ED on 02/12/2024 with worsening left-sided flank pain. 1. Sepsis without shock secondary to acute left-sided pyelonephritis with failed outpatient antibiotics, history of congenital solitary left kidney ? Admit under inpatient status to [facility]. Met sepsis criteria on admit with fever, tachycardia, leukocytosis, suspected KACEY and presumed urinary source. Given 2 L of IV fluids in the ED, blood pressure remained stable, no need for full 30 cc per kg of fluids, will encourage p.o. intake. Urine culture and blood cultures pending. No previous urine culture results available. Will treat with IV Zosyn for now. Pain control with as needed oxycodone and IV Dilaudid. Nausea control with as needed IV Zofran. No hydronephrosis noted, no need for urology involvement at this time. 2. Elevated serum creatinine ? Creatinine 1.92, BUN 31 on admit. Baseline unknown. Suspect mild KACEY in setting of some degree of CKD, given history of solitary kidney and 100 urine protein on UA. Given IV fluid resuscitation in ED as above. Monitor daily BMP and urine output. 3. Suspected mild fatty liver disease ? CT abdomen pelvis on admit showed hepatomegaly and mildly distended gallbladder with trace wall thickening, no ductal dilation. Alk phos mildly elevated, LFTs otherwise normal. No RUQ pain on exam. Suspect mild fatty liver disease as etiology of hepatomegaly and mildly elevated LFTs. Outpatient follow-up as needed. Chronic medical conditions: ? Obesity: BMI 36 on admit. Encouraged lifestyle modifications. Complicates hospital course, care and prognosis. ? Anxiety/depression/insomnia/ADHD: Stable. Follows with outpatient psychiatry. Continue home aripiprazole, Klonopin daily as needed, Adderall, doxepin at night as needed, and venlafaxine. ? Chronic sinus tachycardia: Continue home Lopressor. DVT prophylaxis: Heparin subcu CODE STATUS: Full code, verified Expected disposition: Home, 2 to 3 days Total clinical time spent by myself addressing the patient's medical issues, reviewing all the data, and collaborating with patient's care team: 55 minutes. Charges/Coding Visit Charges Inpatient E&M: 44728 Init Hosp L2
[2024-02-13] VITALS (9 sets, daily range): BP systolic 106–122; BP diastolic 59–76; PULSE 80–92; RESP 15–18; TEMP 36.7–38.3; O2SAT 97–99; BMI 36.5
[2024-02-13] MEDS: oxyCODONE 5 MG Tablet PO ×3 (02:16→22:44)
[2024-02-13] MEDS: Piperacil/Tazobactam 3.375 GM in 0.9% Normal Saline (50mL MB+) 50 ML IV ×4 (02:16→22:44)
[2024-02-13] MEDS: Acetaminophen 325 MG Tablet 650 MG PO ×2 (06:35→13:09)
[2024-02-13 06:40] LABS: Hematocrit 31.4 % (37-47); Hemoglobin 10.5 g/dL (12.0-15.0); Mean Corp Hgb Conc 33.4 g/dL (32-36); Mean Corpuscular Volume 95.7 fL (81-99); Mean Platelet Vol. 9.1 fl (6.2-12.0); Platelet Count 271 K/mm3 (150-450); RBC Distribution Width CV 11.9 % (11.6-14.6); Red Blood Count 3.28 M/mm3 (4.2-5.4); White Blood Count 9.7 K/mm3 (4.4-11.0)
[2024-02-13 07:10] LABS: Anion Gap 7 (5-15); BUN 28 mg/dL (7-18); BUN/Creat Ratio 15.9 RATIO (10-20); Calcium,Total 8.4 mg/dL (8.5-10.1); Chloride 106 mmol/L (98-107); Creatinine, Serum 1.76 mg/dL (0.55-1.02); EST Glomerular Filtration Rate 34 mL/min (>60); Est Glom Filt Rate - Afr Amer 41 mL/min (>60); Estimated Creatinine Clearance 55.51 ml/min; Glucose 103 mg/dL (74-106); Potassium 3.6 mmol/L (3.5-5.1); Sodium Level 134 mmol/L (136-145)
[2024-02-13] MEDS: AMPHETAMINE PO (10:25)
[2024-02-13] MEDS: ARIPiprazole 2 MG Tablet PO (10:25)
[2024-02-13] MEDS: Metoprolol Tartrate 25 MG Tablet PO ×2 (10:25→22:41)
[2024-02-13] MEDS: Heparin Injection (Vial) 5,000 UNIT/ML VIAL 5000 UNIT SC ×2 (10:25→22:42)
[2024-02-13] MEDS: DEXTROAMPHETAMINE PO (10:25)
--- NOTE | 2024-02-13 11:44 | PN_ITS ---
Subjective Subjective Patient seen and examined. She still feels weak and tired. She still has mild left flank pain. She admitted to some fever overnight but its now better. Review of systems is otherwise negative. WBC has trended down to 9.7. Objective Data Objective Data Vital Signs: Vital Signs Temp Pulse Resp BP Pulse Ox O2 Del Method 98.0 F 92 16 116/76 97 Room Air 02/13/24 10:02/13/24 10:02/13/24 10:02/13/24 10:02/13/24 10:09 02/13/24 10:09 Oxygen Delivery Method Room Air Weight: 240 lb 4.862 oz Body Mass Index (BMI) 36.5 Intake & Output: Intake and Output for Last 24 Hours 02/11/24 02/12/24 02/13/24 23:59 23:59 23:59 Intake Total 2049 / 2049 100 / 100 Balance 2049 100 / 100 Lab / Micro Data 02/13/24 06:15 02/13/24 06:15 Labs: Laboratory Results - last 24 hr 02/12/24 21:20: WBC 13.2 H, RBC 3.88 L, Hgb 12.5, Hct 36.6 L, MCV 94.3, MCH 32.2 H, MCHC 34.2, RDW Std Deviation 41.0, RDW Coeff of Krys 11.9, Plt Count 285, MPV 9.2, Immature Gran % (Auto) 2.800 H, Neut % (Auto) 85.2 H, Lymph % (Auto) 4.5 L, [place] % (Auto) 6.3, Eos % (Auto) 0.5, Baso % (Auto) 0.7, Absolute Neuts (auto) 11.2 H, Absolute Lymphs (auto) 0.59 L, Nucleated RBC % 0, Differential Comment SEE COMMENT, Platelet Estimate ADEQUATE, RBC Morphology N CHROM, Anisocytosis RARE, Macrocytosis RARE, PT 15.2 H, INR 1.2, APTT 31.1, Sodium 133 L, Potassium 3.5, Chloride 104, Carbon Dioxide 21.0, Anion Gap 8, BUN 31 H, Creatinine 1.92 H , Estim Creat Clear Calc 49.73, Est GFR (MDRD) Af Amer 37 L, Est GFR (MDRD) Non- Af 31 L, BUN/Creatinine Ratio 16.1, Glucose 109 H, Lactic Acid 1.2, Calcium 8.8, Total Bilirubin 0.40, AST 16, ALT 45, Alkaline Phosphatase 190 H, Total Protein 7.6, Albumin 2.5 L, Globulin 5.1 H, Albumin/Globulin Ratio 0.5 L, Urine Color Yellow, Urine Clarity Cloudy, Urine pH 6.0, Ur Specific [place] 1.015, Urine Protein 100 H, Urine Glucose (UA) Normal, Urine Ketones Negative, Urine Occult Blood 250 H, Urine Nitrite Negative, Urine Bilirubin 1 H, Urine Urobilinogen 8 H , Ur Leukocyte Esterase 500 H, Urine RBC 0-5 SEEN, Urine WBC 10-25 SEEN, Ur Squamous Epith Cells 0-5 SEEN, Urine Bacteria 2+, Urine Mucus 0 SEEN 02/13/24 06:15: WBC 9.7, RBC 3.28 L, Hgb 10.5 L, Hct 31.4 L, MCV 95.7, MCH 32.0, MCHC 33.4, RDW Std Deviation 42.0, RDW Coeff of Krys 11.9, Plt Count 271, MPV 9.1, Sodium 134 L, Potassium 3.6, Chloride 106, Carbon Dioxide 21.0, Anion Gap 7, BUN 28 H, Creatinine 1.76 H, Estim Creat Clear Calc 55.51, Est GFR (MDRD) Af Amer 41 L, Est GFR (MDRD) Non-Af 34 L, BUN/Creatinine Ratio 15.9, Glucose 103, C alcium 8.4 L Radiography Diagnostic Testing: Radiology Impression Abdomen/Pelvis CT 02/12/24 20:59 IMPRESSION: Solitary left kidney with mild perinephric inflammatory stranding.. Correlate for clinical evidence of pyelonephritis. Mildly distended gallbladder with minimal pericholecystic fluid or wall thickening. Consider gallbladder ultrasound. Hepatomegaly. Electronically Signed: Obie Em MD at 22:22 EDT , Physical Exam Const alert, oriented x3 and no apparent distress General Appearance: cooperative and well developed HEENT normocephalic, head/scalp atraumatic, moist oral mucous membranes and oropharynx normal Eyes PERRL and EOMs intact bilaterally Neck no lymphadenopathy, supple and no JVD Lymph Lymphatic: no lymphadenopathy noted and no lymphedema noted Resp normal respiratory effort, normal air movement and clear to auscultation bilaterally Cardio regular rate, regular rhythm, S1 normal heart sound, S2 normal heart sound and no murmurs GI normal to inspection, nondistended, normoactive bowel sounds, soft to palpation, non-tender and non-distended GI Narrative: mild left CVA tenderness Extremity normal capillary refill, no clubbing, cyanosis or edema and no calf tenderness General Extremity: no tenderness to palpation of joints or extremities Skin General Skin Exam: no breakdown Neuro CN's II-XII intact bilaterally, no focal motor deficits, no sensory deficits noted and deep tendon reflexes 2+ bilaterally Motor Exam: strength 5/5 throughout and general weakness Psych thought process normal, cooperative and affect normal Appearance: appropriate Assessment & Plan Assessment/Plan (1) Pyelonephritis: PLAN: Plan #Left pyelonephritis * admitted with a complaint of left sided flank pain. * has a congenital single left kidney * admitted with dysuria and offensive, foul smelling urine. as well as left sided flank pain * she had been on bactrim on outpatient basis, but symptoms did not improve * now on IV zosyn. CT abdomen and pelvis showed solitary left kidney with mild perinephric inflammatory stranding and mildly distended gallbladder with minimal pericholecystic fluid or wall thickening and hepatomegaly. * wbc has trended downwards * blood and urine cultures pending. * on IV morphine, PO oxycodone and PO tylenol for pain. * #Elevated serum creatinine * Cr was 1.92 on admission, but now down to 1.76. * baseline Cr not known * continue gentle hydration with IVF * Trend Cr * #Depression and generalised anxiety disorder: on venlafaxine and aripiprazole as well as clonazepam. #Sinus tachycardia: on lopressor DVT prophylaxis: heparin. Charges/Coding Visit Charges Inpatient E&M: 74401 [facility] Hosp L3
[2024-02-13] MEDS: Venlafaxine HCl 25 MG Tablet 50 MG PO ×2 (13:08→22:41)
--- NOTE | 2024-02-13 13:53 | CASEMGMT ---
Social Work- SW met with pt to conduct SDOH assessment. Pt reports that she has been concerned about food and utilities in the past year d/t significant life changes, but no longer has the same concerns. Pt reports that she works for [employer] in [place] in [employer] on [address]. Pt states that she has worked in [employer] 15 years; 11 years in [place] and 4 years in [place]. Pt reports that on 08/13, she fell at work and injured her back. Pt reports that in November, they declared her to be disabled, but refused to pay ages. Pt reports that she appealed and will have a decision in February. Pt reports that in October, her family went down to one income from two incomes. In November, pt spouse was arrested and placed in fpc, causing pt to have no income. Pt reports that she and spouse are and she continues to have custody of 16 year old son. Pt reports her mom is financially helping her by paying rent and utilities until the appeal process is over and pt is able to secure income. Pt reports that she now has food stamps. Pt has a car and is not concerned about transportation. Pt reports that she would be receptive to information for utilities, food pantries, and general assistance. Pt reports that she mets with a psychologist, Dr Yi at [facility]. Pt reports that friends are helping with son while pt is hospitalized. Pt family all lives in [place] and has been calling to verbally check on pt son and pt. SW provided information on [employer], [employer], food pantries, [employer] card. SW remains available to follow. ARMANDO Correia
--- NOTE | 2024-02-13 14:20 | CASEMGMT ---
TAMIKA ONEAL Assessment: Face to Face with pt for initial transition planning/care coordination assessment. RN JM introduced self and role at [facility], pt voices understanding and consents to assessment. Pt is A&O x4 and answers all questions appropriately at this time. Pt lying in bed in no distress. Care providers, pharmacy, and demographics verified/updated. Admitting Dx:acute pyelonephritis, failed OP abx Strata Score: 2 PCP:Morgan Specialists:Kassidy, psych Preferred Pharmacy:[facility] Insurance:Cign[employer] Prescription Benefit: yes LNOK:Marcus Devine, ( Pt reports soon to be ex and that he is incarcerated) Living Arrangements: Pt lives with 16 year old son in a two story home with 3 steps to enter through the side door. Pt reports being I in ADL/IADLs and denies concerns at home. Pt works. Pt son has multiple people checking in on him while he is at the hospital. Pt denies concerns at home. Transportation: Pt drives self and denies concerns with transportation. DME:[facility] HHC/SNF:Denies hx of Pt states no concerns with going home at time of dc. Pt states no further concerns/needs. CM to follow. Advised pt to ask CM if any further question/concerns/needs arise, voices understanding. Pt Goal:Home Plan:Home
[2024-02-14] VITALS (7 sets, daily range): BP systolic 113–121; BP diastolic 65–77; PULSE 70–86; RESP 15–20; TEMP 36.7–37.7; O2SAT 95–100
[2024-02-14 06:09] LABS: Absolute Lymphocyte Count 1.03 X10^3/uL (0.83-4.51); Absolute Neutrophil Count 4.8 X10^3/uL (2.0-7.7); Basophil# 0.07 X10^3/uL; Eosinophil# 0.11 X10^3/uL; Eosinophils% 1.5 % (0-5); Hematocrit 31.5 % (37-47); Hemoglobin 10.6 g/dL (12.0-15.0); Lymphocyte # 1.03 X10^3/ul (0.83-4.51); Lymphocyte % 14.2 % (19-41); Mean Corp Hgb Conc 33.7 g/dL (32-36); Mean Corpuscular Hgb 32.3 pg (27.0-32.0); Monocyte# 0.97 X10^3/uL; Monocyte% 13.4 % (0-10); NRBC Flagged by Analyzer 0 % (0-5); Neutrophil # 4.84 X10^3/uL (2.7-7.7); Neutrophil % 66.6 % (47-70); Platelet Count 317 K/mm3 (150-450); RBC Distribution Width CV 12.4 % (11.6-14.6); RBC Distribution Width SD 44.4 fl (35.1-43.9); Red Blood Count 3.28 M/mm3 (4.2-5.4); White Blood Count 7.3 K/mm3 (4.4-11.0)
[2024-02-14] MEDS: Venlafaxine HCl 25 MG Tablet 50 MG PO ×3 (06:17→22:04)
[2024-02-14] MEDS: Piperacil/Tazobactam 3.375 GM in 0.9% Normal Saline (50mL MB+) 50 ML IV ×3 (06:21→22:03)
[2024-02-14] MEDS: DEXTROAMPHETAMINE PO ×2 (06:26→15:49)
[2024-02-14] MEDS: AMPHETAMINE PO ×2 (06:26→15:49)
[2024-02-14 06:38] LABS: Anion Gap 7 (5-15); BUN 25 mg/dL (7-18); BUN/Creat Ratio 14.7 RATIO (10-20); Calcium,Total 8.9 mg/dL (8.5-10.1); Chloride 111 mmol/L (98-107); EST Glomerular Filtration Rate 35 mL/min (>60); Est Glom Filt Rate - Afr Amer 43 mL/min (>60); Estimated Creatinine Clearance 57.47 ml/min; Glucose 109 mg/dL (74-106); Potassium 4.2 mmol/L (3.5-5.1); Sodium Level 138 mmol/L (136-145)
--- NOTE | 2024-02-14 09:48 | PN_ITS ---
Subjective Subjective Patient seen and examined. She had no active complaints. Pain is much better. Temperature was 99.7F. Review of systems is otherwise negative. She has remained hemodynamically stable. Objective Data Objective Data Vital Signs: Vital Signs Temp Pulse Resp BP Pulse Ox O2 Del Method 99.7 F H 86 15 117/68 96 Room Air 02/14/24 04:35 02/14/24 04:35 02/14/24 04:35 02/14/24 04:35 02/14/24 04:35 02/14/24 04:35 Oxygen Delivery Method Room Air Weight: 240 lb 4.862 oz Body Mass Index (BMI) 36.5 Intake & Output: Intake and Output for Last 24 Hours 02/12/24 02/13/24 02/14/24 23:59 23:59 23:59 Intake Total 2049 150 / 350 650 / 650 Balance 2049 150 / 350 650 / 650 Lab / Micro Data 02/14/24 05:20 02/14/24 05:20 Labs: Laboratory Results - last 24 hr 02/14/24 05:20: WBC 7.3, RBC 3.28 L, Hgb 10.6 L, Hct 31.5 L, MCV 96.0, MCH 32.3 H, MCHC 33.7, RDW Std Deviation 44.4 H, RDW Coeff of Krys 12.4, Plt Count 317, MPV 9.0, Immature Gran % (Auto) 3.300 H, Neut % (Auto) 66.6, Lymph % (Auto) 14.2 L, [place] % (Auto) 13.4 H, Eos % (Auto) 1.5, Baso % (Auto) 1.0, Absolute Neuts (auto) 4.8, Absolute Lymphs (auto) 1.03, Nucleated RBC % 0, Sodium 138, Potassium 4.2, Chloride 111 H, Carbon Dioxide 20.0 L, Anion Gap 7, BUN 25 H, C reatinine 1.70 H, Estim Creat Clear Calc 57.47, Est GFR (MDRD) Af Amer 43 L, Est GFR (MDRD) Non-Af 35 L, BUN/Creatinine Ratio 14.7, Glucose 109 H, Calcium 8.9 Micro: Microbiology 02/12/24 21:20 Urine, Clean Catch Urine Culture - Preliminary Gram negative ca Physical Exam Const alert, oriented x3 and no apparent distress General Appearance: cooperative, comfortable and well developed HEENT normocephalic, head/scalp atraumatic, hearing grossly normal bilaterally, nasal mucous membranes and turbinates normal, moist oral mucous membranes and oropharynx normal Eyes PERRL, EOMs intact bilaterally and conjunctivae normal Neck full ROM, no lymphadenopathy, supple and no JVD Lymph Lymphatic: no lymphadenopathy noted and no lymphedema noted Chest inspection of chest normal Resp normal respiratory effort, normal air movement, no use of accessory muscles and clear to auscultation bilaterally Cardio regular rate, regular rhythm, S1 normal heart sound, S2 normal heart sound, no murmurs and peripheral pulses 2+ throughout GI normal to inspection, nondistended, normoactive bowel sounds, soft to palpation, non-tender and non-distended GI Narrative: left costophrenic angle tenderness has resolved. Narrative: Mild left-sided CVA tenderness noted. Bladder / Kidney Exam: bladder normal to palpation Back/Spine normal ROM and normal to inspection Extremity normal to inspection, full ROM, normal capillary refill, no clubbing, cyanosis or edema, no calf tenderness and no pedal edema General Extremity: no tenderness to palpation of joints or extremities Skin no rashes or lesions noted General Skin Exam: no breakdown Neuro CN's II-XII intact bilaterally, moves all extremities, no focal motor deficits, no sensory deficits noted and deep tendon reflexes 2+ bilaterally Speech: speech normal Motor Exam: strength 5/5 throughout and general weakness Psych mental status grossly normal, thought process normal, cooperative and affect normal Appearance: appropriate Assessment & Plan Assessment/Plan (1) Pyelonephritis: PLAN: Plan #Left pyelonephritis * left flank pain is resolving. * has a congenital single left kidney * admitted with dysuria and offensive, foul smelling urine. as well as left sided flank pain * she had been on bactrim on outpatient basis, but symptoms did not improve * now on IV zosyn. CT abdomen and pelvis showed solitary left kidney with mild perinephric inflammatory stranding and mildly distended gallbladder with minimal pericholecystic fluid or wall thickening and hepatomegaly. * wbc remains down at 7.3. * urine cultures growing gram negative rods. * blood cultures pending. * on IV morphine, PO oxycodone and PO tylenol for pain. * #Elevated serum creatinine * Cr was 1.92 on admission, but now down to 1.70. * baseline Cr not known. She likely has CKD. * Trend Cr * encourage oral intake * #Depression and generalised anxiety disorder: on venlafaxine and aripiprazole as well as clonazepam. #Sinus tachycardia: on lopressor DVT prophylaxis: heparin. Charges/Coding Visit Charges Inpatient E&M: 56282 Subs Hosp L2
[2024-02-14] MEDS: Metoprolol Tartrate 25 MG Tablet PO ×2 (10:34→22:16)
[2024-02-14] MEDS: ARIPiprazole 2 MG Tablet PO (10:34)
[2024-02-14] MEDS: Heparin Injection (Vial) 5,000 UNIT/ML VIAL 5000 UNIT SC ×2 (10:35→22:04)
[2024-02-14] MEDS: Acetaminophen 325 MG Tablet 650 MG PO (18:15)
[2024-02-14] MEDS: Ondansetron 4 MG/2 ML Vial IV (20:45)
[2024-02-14] MEDS: 0.9% Saline Lock 10 ML Syringe IV ×2 (20:45→22:05)
[2024-02-15 02:32] VITALS: BP 107/64; PULSE 75; RESP 16; TEMP 36.7; O2SAT 97
[2024-02-15] MEDS: Venlafaxine HCl 25 MG Tablet 50 MG PO ×2 (05:29→13:52)
[2024-02-15] MEDS: Piperacil/Tazobactam 3.375 GM in 0.9% Normal Saline (50mL MB+) 50 ML IV ×2 (05:29→13:51)
[2024-02-15] MEDS: DEXTROAMPHETAMINE PO (05:30)
[2024-02-15] MEDS: AMPHETAMINE PO (05:30)
[2024-02-15 06:28] LABS: Hematocrit 32.9 % (37-47); Hemoglobin 10.5 g/dL (12.0-15.0); Mean Corp Hgb Conc 31.9 g/dL (32-36); Mean Corpuscular Hgb 31.2 pg (27.0-32.0); Mean Corpuscular Volume 97.6 fL (81-99); Mean Platelet Vol. 8.8 fl (6.2-12.0); POSITIVE COUNT YES; POSITIVE MORPHOLOGY YES; Platelet Count 350 K/mm3 (150-450); RBC Distribution Width CV 12.6 % (11.6-14.6); RBC Distribution Width SD 45.2 fl (35.1-43.9); Red Blood Count 3.37 M/mm3 (4.2-5.4)
[2024-02-15 06:39] LABS: Differential Indicated MANUAL DIFF
[2024-02-15 06:47] LABS: Anion Gap 3 (5-15); BUN 23 mg/dL (7-18); BUN/Creat Ratio 16.4 RATIO (10-20); Calcium,Total 8.8 mg/dL (8.5-10.1); Chloride 115 mmol/L (98-107); EST Glomerular Filtration Rate 44 mL/min (>60); Est Glom Filt Rate - Afr Amer 54 mL/min (>60); Estimated Creatinine Clearance 69.79 ml/min; Glucose 99 mg/dL (74-106); Potassium 4.8 mmol/L (3.5-5.1); Sodium Level 140 mmol/L (136-145)
[2024-02-15 07:33] LABS: Eosinophil 2 % (0-5); Lymphocyte 16 % (19-41); Metamyelocyte 2 % (0-1); Monocyte 1 % (0-10); Neutrophil-Band 1 % (0-5); Neutrophil-Segmented 78 % (47-70); Total Cells Counted 100 (MANUAL DIFF); Toxic Granulation 1+
[2024-02-15 07:34] LABS: Hypochromasia May foll; Platelet Estimate ADEQUATE (ADEQ); Red Cell Morphology NORM C+C NORMAL (NORM C&C)
[2024-02-15 07:35] LABS: Absolute Lymphocyte Count 1.28 X10^3/uL (0.83-4.51); Absolute Neutrophil Count 6.3 X10^3/uL (2.0-7.7)
[2024-02-15 10:38] VITALS: BP 114/70; PULSE 105; RESP 18; TEMP 36.7; O2SAT 100
[2024-02-15 10:42] VITALS: PULSE 80
[2024-02-15] MEDS: Metoprolol Tartrate 25 MG Tablet PO (10:42)
[2024-02-15] MEDS: ARIPiprazole 2 MG Tablet PO (10:42)
[2024-02-15] MEDS: Heparin Injection (Vial) 5,000 UNIT/ML VIAL 5000 UNIT SC (10:43)
--- NOTE | 2024-02-15 12:30 | DS.PCM_ITS ---
Providers Date of Admission: 02/12/24 Date of Discharge: 02/15/24 Primary Care Physician: Dr. Fabián Mora MD Reason For Visit: ACUTE PYELONEPHRITIS, FAILED OP ABX Diagnosis Discharge Diagnosis (1) Pyelonephritis: Status: Acute Code(s): N12 - Tubulo-interstitial nephritis, not specified as acute or chronic Plan #Left pyelonephritis * left flank pain is resolving. * has a congenital single left kidney * admitted with dysuria and offensive, foul smelling urine. as well as left sided flank pain * she had been on bactrim on outpatient basis, but symptoms did not improve * now on IV zosyn. CT abdomen and pelvis showed solitary left kidney with mild perinephric inflammatory stranding and mildly distended gallbladder with minimal pericholecystic fluid or wall thickening and hepatomegaly. * wbc remains down at 7.3. * urine cultures growing gram negative rods. * blood cultures pending. * on IV morphine, PO oxycodone and PO tylenol for pain. * #Elevated serum creatinine * Cr was 1.92 on admission, but now down to 1.70. * baseline Cr not known. She likely has CKD. * Trend Cr * encourage oral intake * #Depression and generalised anxiety disorder: on venlafaxine and aripiprazole as well as clonazepam. #Sinus tachycardia: on lopressor DVT prophylaxis: heparin. Medications at Discharge Home Medications metoprolol tartrate 25 mg tablet 25 mg PO BID tachycardia 06/12/22 aripiprazole 2 mg tablet 2 mg PO DAILY #30 tabs 01/05/24 dextroamphetamine-amphetamine 10 mg tablet (Adderall) 10 mg PO BID 30 days #60 tabs 01/14/24 venlafaxine 50 mg tablet 50 mg PO TID #90 tabs 02/10/24 clonazepam 1 mg tablet (Klonopin) 1 mg PO DAILY PRN anxiety 02/12/24 doxepin 10 mg capsule 10 mg PO QHS PRN insomnia 02/12/24 etonogestrel 68 mg subdermal implant (Nexplanon) 1 implant subdermal .COMPLEX 02/12/24 cefdinir 300 mg capsule 300 mg PO BID #14 caps 02/15/24 Hospital Course Operations None Procedures None Summary of Care Provided Minutes Spent on Discharge: 55 Hospital Course: Patient is a 38-year-old female with a past medical history as outlined was admitted through the ED on 02/12/2024 with a complaint of worsening left-sided flank pain. Patient had a history of congenital solitary left kidney and had had UTIs in the past but denied ever having pyelonephritis. Symptoms have been going on for about a week with associated foul-smelling and bloody urine with increased urinary frequency. She went to the urgent care few days before this admission and was diagnosed with UTI. She was started on p.o. Bactrim. She took 3 days of the Bactrim but her symptoms worsened and she also developed fever and chills with nausea and had minimal p.o. intake. Her left flank pain was also worsening so she came into the ED. In the ED she was febrile with temperature of 102.1 Fahrenheit and she was also tachycardic. WBC was 13.2. Urinalysis showed evidence of UTI with 2+ bacteria. CT of the abdomen and pelvis showed a solitary left kidney with mild perinephric inflammatory stranding and mildly distended gallbladder with minimal pericholecystic fluid or wall thickening hepatomegaly. She was admitted and managed for left-sided pyelonephritis. She was hydrated with IV fluids and started on IV broad- spectrum antibiotics. Her fever resolved and her tachycardia also resolved. Her white cell count trended down and normalized. The left flank pain also resolved and patient felt much better. She was discharged home on 02/07/2024. Of note her urine cultures grew out gram-negative rods speciation of which was still pending at time of discharge. Her blood cultures were however negative. She was discharged on p.o. cefdinir 300 mg twice daily for 7 days. She is to follow-up with her primary care doctor within 1 to 2 weeks. Patient seen and examined prior to discharge she felt much better today and had no complaints. She had an uneventful night. Review of systems otherwise negative. Labs and vitals reviewed. Home medication reviewed and reconciled. Physical Exam Const alert, oriented x3 and no apparent distress General Appearance: cooperative, comfortable, well kempt and well developed HEENT normocephalic, head/scalp atraumatic, hearing grossly normal bilaterally, nasal mucous membranes and turbinates normal, moist oral mucous membranes and oropharynx normal Mouth: oral and palatal mucosa normal Eyes PERRL, EOMs intact bilaterally and conjunctivae normal Neck full ROM, no lymphadenopathy, supple and no JVD Lymph Lymphatic: no lymphadenopathy noted and no lymphedema noted Chest inspection of chest normal Resp normal respiratory effort, normal air movement, no retractions, no use of accessory muscles and clear to auscultation bilaterally Cardio regular rate, regular rhythm, S1 normal heart sound, S2 normal heart sound, no murmurs and peripheral pulses 2+ throughout GI normal to inspection, nondistended, normoactive bowel sounds, soft to palpation, non-tender and non-distended GI Narrative: left costophrenic angle tenderness has resolved. Narrative: Mild left-sided CVA tenderness noted. Bladder / Kidney Exam: bladder normal to palpation Back/Spine normal ROM and normal to inspection Extremity normal to inspection, full ROM, normal capillary refill, no clubbing, cyanosis or edema, no calf tenderness and no pedal edema General Extremity: no tenderness to palpation of joints or extremities Skin no rashes or lesions noted General Skin Exam: no breakdown Neuro oriented x3, CN's II-XII intact bilaterally, moves all extremities, no focal motor deficits, no sensory deficits noted and deep tendon reflexes 2+ bilaterally Sensorium / Orientation: awake and alert Speech: speech normal Motor Exam: strength 5/5 throughout and general weakness Psych mental status grossly normal, thought process normal, cooperative and affect normal Appearance: appropriate Weight / BMI Weight Weight: 240 lb 4.862 oz Body Mass Index (BMI) 36.5 ABG / Lab / Microbiology Data 02/15/24 05:34 02/15/24 05:34 Laboratory: Laboratory Results - last 24 hr 02/15/24 05:34: WBC 8.0, RBC 3.37 L, Hgb 10.5 L, Hct 32.9 L, MCV 97.6, MCH 31.2, MCHC 31.9 L D, RDW Std Deviation 45.2 H, RDW Coeff of Krys 12.6, Plt Count 350, MPV 8.8, Neut % (Auto) Not Reportable, Absolute Neuts (auto) 6.3, Absolute Lymphs (auto) 1.28, Total Counted 100, Neutrophils % (Manual) 78 H, Band Neutrophils % 1, Lymphocytes % (Manual) 16 L, Monocytes % (Manual) 1, Eosinophils % (Manual) 2, Metamyelocytes % 2 H, Diff Path Review May foll, Toxic Granulation 1+, Platelet Estimate ADEQUATE, RBC Morphology NORM C+C, Hypochromasia May foll, Sodium 140, Potassium 4.8, Chloride 115 H, Carbon Dioxide 22.0, Anion Gap 3 L, BUN 23 H, Creatinine 1.40 H, Estim Creat Clear Calc 69.79, Est GFR (MDRD) Af Amer 54 L, Est GFR (MDRD) Non-Af 44 L, BUN/Creatinine Ratio 16.4, Glucose 99, Calcium 8.8 Microbiology: Microbiology 02/12/24 21:20 Blood Culture (Wb) - Anticubital Left Blood Culture - Preliminary No growth in 48 hours. 02/12/24 21:20 Urine, Clean Catch Urine Culture - Final Gram negative ac D/C Instructions Discharge Diet: Low fat / Low cholesterol Discharge Activity: Return to Normal Activity Weight Bearing Status: Weight bearing as tolerated Call your doctor if you observe: Fever of 101 or Higher, Shortness of breath, Dizziness, Swelling in the ankles and Chest pain Meaningful Use Info Meaningful Use Meaningful Use Diagnoses (Choose all that apply): None applicable Ischemic Stroke Statin Dosing Therapy Reference: STATIN DOSE THERAPY REFERENCE: * Patients > 75 years receive moderate or high dose statin therapy. * Patients 75 years or YOUNGER should receive HIGH intensity statin dose unless contraindicated. You will be required to document reason for non-treatment if statin daily dose does not meet guidelines. HIGH DOSE STATIN THERAPY DAILY Atorvastatin > than or = to 40 mg Rosuvastatin > than or = to 20 mg Amlodipine + Atorvastatin > than or = to 2.5/40 mg Ezetimibe + Simvastatin 10/80 mg Simvastatin 80mg Discharge Plan Admission Admit Date/Time: 02/12/24 23:50 Primary Reason for Your Visit: pyelonephritis Attending Provider: Taniya Figueroa Primary Care Provider: Fabián Mora Consulting Providers: Homer Tavares Instructions Patient Instructions: ED Pyelonephritis, Female (Adult) Discharge Orders/Prescriptions Prescriptions: New cefdinir 300 mg capsule 300 mg PO BID Qty: 14 0RF Continued metoprolol tartrate 25 mg tablet 25 mg PO BID Patient Comments: TAKE 1 TABLET BY MOUTH TWICE DAILY Nexplanon 68 mg implant 1 implant subdermal .COMPLEX Rx Instructions: 1 implant subdermally EVERY 3 YEARS; clonazepam [Klonopin] 1 mg tablet 1 mg PO DAILY PRN (Reason: anxiety) doxepin 10 mg capsule 10 mg PO QHS PRN (Reason: insomnia) aripiprazole 2 mg tablet 2 mg PO DAILY Qty: 30 3RF dextroamphetamine-amphetamine [Adderall] 10 mg tablet 10 mg PO BID 30 Days Qty: 60 0RF Rx Instructions: administer doses at least 4-6 hours apart venlafaxine 50 mg tablet 50 mg PO TID Qty: 90 0RF Referrals / Follow Up: Fabián Mora MD [Primary Care Provider] - Within 1 Week Disposition Disposition (needs filled in before D/C Order can be placed): Home, Self Care Charges/Coding Visit Charges Inpatient E&M: 48871 Disch Hosp >30min
[2024-02-16 14:34] LABS: Pathologist Review Reviewed
== END 2024-02-15 14:53 | disposition home or self-care (01) | DRG 690 ==
LOC: ED 22:44 → MS3 02-13 00:05
PROVIDERS: Nurse Practitioner; Admitting Provider Hospitalist; Emergency Provider Emergency Medicine; PCP Family Medicine; Visit Provider Student in an Organized Health Care Education/Training Program
DX: N10 Acute pyelonephritis (principal); Q60.0 Renal agenesis, unilateral; K76.0 Fatty (change of) liver, not elsewhere classified; N18.9 Chronic kidney disease, unspecified; F32.A Depression, unspecified; Z68.36 Body mass index [BMI] 36.0-36.9, adult; R31.9 Hematuria, unspecified; F41.0 Panic disorder [episodic paroxysmal anxiety]; G47.00 Insomnia, unspecified; R00.0 Tachycardia, unspecified; F41.1 Generalized anxiety disorder; F90.9 Attention-deficit hyperactivity disorder, unspecified type; E66.9 Obesity, unspecified; Z79.899 Other long term (current) drug therapy; Z87.891 Personal history of nicotine dependence
CPT/HCPCS: 36415; 74176; 80048; 80053; 81001; 83605; 85025; 85027; 85610; 85730; 87040; 87086; 87088; 97802; 99284; J7030; A4216; J2405